=== PATIENT | female | born 1990 | race Caucasian/White ===

== ENCOUNTER 2017-07-08 17:11 | Emergency (ER) | payer OTHER ==
[~2017-07-08] VITALS: Ht 165.1 cm; Wt 59.0 kg
--- NOTE | 2017-07-08 20:26 | ED GENERAL ADULT ---
History of Present Illness General Chief Complaint: General Adult Stated Complaint: SENT IN BY [facility]; ETOH DETOX Source: patient Exam Limitations: no limitations Vital Signs & Intake/Output Vital Signs & Intake/Output Vital Signs Date Time Temp Pulse Resp B/P B/P Pulse O2 O2 Flow FiO2 Mean Ox Delivery Rate 07/09 0548 98.3 72 18 106/66 07/09 0548 98.3 72 18 106/66 97 Room Air 07/09 0405 98.4 73 18 101/56 07/09 0403 98.4 73 18 101/56 97 Room Air 07/09 0139 98.6 74 18 99/57 07/09 0137 98.6 74 16 99/57 98 Room Air 07/08 2339 97.8 94 18 124/73 07/08 2337 98.7 94 18 124/73 95 Room Air 07/08 2121 Room Air 07/08 211 97.1 71 18 153/90 07/08 2113 97.1 71 18 153/90 99 07/08 1723 97.8 73 18 145/93 97 Room Air Room Air ED Intake and Output 07/09 0000 07/08 1200 Intake Total Output Total Balance Patient 130 lb Weight Weight Reported by Patient Measurement Method Allergies Coded Allergies: No Known Allergies (07/08/17) Triage Note: TRIAGE: 26 FEMALE PRESENTS FOR ADMISSION TO [facility] FOR DRUG AND ALOCHOL DETOX. ON A DAILY BASIS, AVERAGE OF 5 DRINKS DAILY. $100/ WEEK ON COCAINE; ONCE WEEKLY [place] USAGE. DENIES SUICIDALITY OR HOMICIDALITY. * HAS NEVER BEEN ADMITTED FOR DETOX BEFORE. Triage Nurses Notes Reviewed? yes Onset: Gradual Duration: week(s): Timing: recent history Injury Environment: home Severity: moderate Modifying Factors: Improves With: rest. Associated Symptoms: "When I don't drink, I don't feel well." : No Patient currently breastfeeds: No HPI: 26 yo woman presents seeking detox from alcohol. She shares that she drinks mostly tequila, usually 5 times/week, with occasional cocaine use. She notes that since she moved to [facility], "where they have everything all the time, " her use has accelerated. "I've been in detox before, but this is the first time that I really wanted to go." She shares that she has never had a seizure, but that she feels unwell when she stops. She denies SI/HI and is otherwise well. (Mariana BRANHAM,[place] Guthrie) Past History Travel History Traveled to [place] past 21 day No Medical History Any Pertinent Medical History? see below for history Neurological: alcoholism Psychiatric: ADD Surgical History Surgical History: none Psychosocial History What is your primary language Cameroonian Tobacco Use: Current Not Daily ETOH Use: alcoholic Illicit Drug Use: cocaine, marijuana Family History Comment: father with alcoholism. Hx Contributory? Yes (Mariana BRANHAM,[place]) Review of Systems Review of Systems Constitutional: Reports: no symptoms. EENTM: Reports: no symptoms. Respiratory: Reports: no symptoms. Cardiovascular: Reports: no symptoms. GI: Reports: no symptoms. Genitourinary: Reports: no symptoms. Musculoskeletal: Reports: no symptoms. Skin: Reports: no symptoms. Neurological/Psychological: Reports: no symptoms. Hematologic/Endocrine: Reports: no symptoms. Immunologic/Allergic: Reports: no symptoms. All Other Systems: Reviewed and Negative (Mariana BRANHAM,[place]) Physical Exam Physical Exam General Appearance: well developed/nourished, no apparent distress Head: atraumatic, normal appearance Eyes: Bilateral: normal appearance. Ears, Nose, Throat: normal ENT inspection Neck: normal inspection Respiratory: no respiratory distress Cardiovascular: regular rate/rhythm Back: normal inspection Extremities: normal inspection Neurologic/Psych: no motor/sensory deficits, awake, alert, oriented x 3, flat affect Skin: intact, normal color, warm/dry Core Measures ACS in differential dx? No CVA/TIA Diagnosis: No Sepsis Present: No Sepsis Focused Exam Completed? No (Mariana BRANHAM,[place]) Progress Differential Diagnoses I considered the following diagnoses in my evaluation of the patient: alcoholism vs other. Plan of Care: Orders Procedure Date/time Status Regular Diet 07/09 B Active URINE DRUG SCREEN FOR ER ONLY 07/08 1728 Complete Add-on Test (ER Only) 07/08 172 Active CIWA 07/08 172 Active URINE 07/08 172 Complete URINALYSIS 07/08 172 Complete MAGNESIUM 07/08 1727 Complete LIPASE 07/08 172 Complete ETHANOL 07/08 172 Complete COMPREHENSIVE METABOLIC PANEL 07/08 172 Complete CBC WITHOUT DIFFERENTIAL 07/08 1726 Complete AMYLASE 07/08 172 Complete Laboratory Tests 07/09/17 0530: Urine Opiates Screen < 100.00, Methadone Screen < 40, Barbiturate Screen < 60, Ur Phencyclidine Scrn < 6.00, Amphetamines Screen < 100, U Benzodiazepines Scrn < 85, Urine Cocaine Screen > 1000 H, Urine Cannabis Screen 18.10, Urine Color YEL, Urine Clarity CLEAR, Urine pH 6.0, Ur Specific [place] 1.025, Urine Protein NEG, Urine Ketones 15 H, Urine Nitrite NEG, Urine Bilirubin NEG, Urine Urobilinogen 0.2, Ur Leukocyte Esterase NEG, Ur Microscopic EXAM NOT REQUIRED, Urine Hemoglobin NEG, Urine Glucose NEG, Urine Test NEGATIVE 07/08/172058: Anion Gap 16, Estimated GFR > 60, BUN/Creatinine Ratio 27.1 H, Glucose 118 H, Calcium 9.9, Magnesium 2.2, Total Bilirubin 0.6, AST 40 H, ALT 28, Alkaline Phosphatase 75, Total Protein 6.9, Albumin 4.4, Globulin 2.5, Albumin/Globulin Ratio 1.8, Amylase 69, Lipase 289, CBC w Diff NO MAN DIFF REQ, RBC 4.32, MCV 93.7, MCH 31.1 H, MCHC 33.2, RDW 13.9, MPV 9.5, Gran % 58.9, Lymphocytes % 30.1 , Monocytes % 9.3, Eosinophils % 1.4, Basophils % 0.3, Absolute Granulocytes 3.4 , Absolute Lymphocytes 1.7, Absolute Monocytes 0.5, Absolute Eosinophils 0.1, Absolute Basophils 0, Serum Alcohol < 10.0 Initial ED EKG: none Hand-Off Endorsed To: Viecnte Dietz DO Endorsed Time: 0700 Pending: consult ([facility]), labs, other Comments: pt to be evaluated for [facility] detox program later this morning. (Mariana BRANHAM,[place]) Departure Departure Disposition: STILL A PATIENT Condition: Stable Clinical Impression Primary Impression: Alcoholism Referrals: Unknown (PCP/Family) Departure Forms: Customer Survey General Discharge Information (Mariana BRANHAM,[place] G[place]) Departure Comments 07/09/17 7 AM The patient was signed out to me by Dr. Peña. She is awake alert oriented watch. (Vicente Dietz DO) Critical Care Note Critical Care Note Critical Care Time: non-applicable (Mariana BRANHAM,[place] G[place]rie)
[2017-07-08 21:07] LABS: ABSOLUTE BASOPHIL COUNT 0 /CUMM (0.0-0.2); ABSOLUTE EOSINOPHIL COUNT 0.1 /CUMM (0.0-0.7); ABSOLUTE GRANULOCYTE CT 3.4 /CUMM (1.4-6.5); ABSOLUTE LYMPH COUNT 1.7 /CUMM (1.2-3.4); ABSOLUTE MONOCYTE COUNT 0.5 /CUMM (0.10-0.60); BASOPHIL % 0.3 % (0.0-2.0); EOSINOPHIL % 1.4 % (0-5); GRANULOCYTE % 58.9 % (42.2-75.2); HEMATOCRIT 40.4 % (37-47); MEAN CORPUSCULAR HGB 31.1 PG (27.0-31.0); MEAN CORPUSCULAR HGB CONC 33.2 G/DL (33.0-37.0); MEAN CORPUSCULAR VOLUME 93.7 FL (81.0-99.0); MEAN PLATELET VOLUME 9.5 FL (7.4-10.4); PLATELET COUNT 279 /CUMM (130-400); RBC DISTRIBUTION WIDTH 13.9 % (11.5-14.5); RED BLOOD CELL CT 4.32 /CUMM (4.20-5.40); WHITE BLOOD CELL COUNT 5.8 /CUMM (4.8-10.8)
[2017-07-09 08:01] VITALS: BP 100/74
== END 2017-07-09 08:00 ==
LOC: ERH 17:11
PROVIDERS: Physician Assistant
DX: F10.20 Alcohol dependence, uncomplicated (principal)
CPT/HCPCS: 80307; 81003; 81025; G0480